=== PATIENT | female | born 1990 | race Caucasian/White ===

== ENCOUNTER 2017-11-18 20:01 | Emergency (ER) | payer OTHER ==
[2017-11-18 20:36] VITALS: BP 115/75
[2017-11-18] MEDS ORDERED: MOTRIN PO ONE (20:37)
--- NOTE | 2017-11-18 21:09 | XRay Report ---
FINAL REPORT EXAM: XR SPINE LUMBOSACRAL 2-3V HISTORY: Lower back pain COMPARISON: None available. FINDINGS: Three views of the lumbar spine obtained. Lumbar vertebral body heights and disc heights are preserved. Pedicles are intact. Interspace device is present between the L4 and L5 spinous processes. This appears to be in satisfactory alignment. No spondylolisthesis. IMPRESSION: Normal height and alignment of the lumbar spine. Interspace device is present between the L4 and L5 spinous processes.
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
== END 2017-11-18 21:43 | disposition home or self-care (01) ==
LOC: ED 20:01
DX: S39.92XA Unspecified injury of lower back, initial encounter (principal); X50.9XXA Other and unspecified overexertion or strenuous movements or postures, initial encounter; Y93.89 Activity, other specified; Y92.810 Car as the place of occurrence of the external cause; Y99.8 Other external cause status
CPT/HCPCS: 72100; 99283